=== PATIENT | male | born 1995 | race Caucasian/White ===

== ENCOUNTER 2017-10-15 23:58 | Emergency (ER) | payer SELFPAY ==
[~2017-10-15] VITALS: Ht 172.7 cm; Wt 73.0 kg
[2017-10-16 04:43] VITALS: BP 106/53
== END 2017-10-16 05:03 | disposition home or self-care (01) ==
LOC: ER 10-16 00:48
DX: B86 Scabies (principal); F12.10 Cannabis abuse, uncomplicated
CPT/HCPCS: 99282